=== PATIENT | male | born 2000 | race Caucasian/White ===

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

== ENCOUNTER 2021-08-01 06:26 | Emergency (ER) | payer SELFPAY ==
[2021-08-01] MEDS ORDERED: Acetaminophen 325 MG Tab PO ONE (07:24)
[2021-08-01] MEDS ORDERED: Ibuprofen 800 MG Tab PO ONE (07:25)
--- NOTE | 2021-08-01 07:31 | EDM.PDOC ---
ED HPI GENERAL MEDICAL PROBLEM - General Chief Complaint: General Stated Complaint: PAIN IN HEAD Time Seen by Provider: 08/01/21 07:15 Source of Information: Reports: Patient - History of Present Illness INITIAL COMMENTS - FREE TEXT/NARRATIVE: 21-year-old male presents complaining of headache. The patient states he has had Covid for 8 days and last night started a headache. Describes it is frontal and throbbing. He thinks it might be his sinuses. No high fevers. No thick nasal discharge. No slurred speech or double vision or arm/leg numbness/weakness. Moderate pain Bilateral Head Pain Score (Numeric/FACES): 8 - Related Data Allergies Allergy/AdvReac Type Severity Reaction Status Date / Time No Known Allergies Allergy Verified 08/01/21 06:35 Home Meds: Home Meds Amoxicillin/Potassium Clav [Augmentin 875-125 Tablet] 1 each PO BID #20 tablet 08/01/21 [Rx] Past Medical History - Past Health History Medical/Surgical History: Denies Medical/Surgical History - Infectious Disease History Infectious Disease History: Reports: None Social & Family History - Family History Family Medical History: No Pertinent Family History - Tobacco Use Tobacco Use Status *Q: Never Tobacco User - Caffeine Use Caffeine Use: Reports: Coffee - Recreational Drug Use Recreational Drug Use: No ED ROS GENERAL - Review of Systems Review Of Systems: See Below Constitutional: Denies: Fever HEENT: Reports: Other (Headache) Respiratory: Reports: Cough Cardiovascular: Reports: No Symptoms GI/Abdominal: Reports: No Symptoms Musculoskeletal: Reports: Muscle Pain ED EXAM, GENERAL - Physical Exam Exam: See Below Free Text/Narrative:: CONSTITUTIONAL: well appearing in no acute distress SKIN: Warm, dry, and intact without rash HENT: Normocephalic, atraumatic, PULMONARY: clear to ausculation bilaterally. No rales, rhonchi, wheezing CARDIOVASCULAR: regular rate, No murmur, rubs, or gallops GASTROINTESTINAL: soft, nondistended, nontender NEUROLOGIC: normal speech, II-XII intact. light touch/5/5 power equal and symmetric in upper and lower extremities without deficit MUSCULOSKELETAL: no gross deformities, atraumatic PSYCHIATRIC: normal mood and affect Course - Vital Signs Text/Narrative:: Differential diagnosis: Viral cephalgia, meningitis, intracranial hemorrhage, malignancy, bacterial sinusitis, other She presents complaining of headache. Patient is well-appearing and nontoxic. No meningismus and no focal neurologic deficits. Patient has had Covid this could represent a viral cephalgia. Alternatively this could represent an early bacterial sinusitis superinfection. Patient given Tylenol ibuprofen with improvement of condition. Antibiotics in case there is spiking fevers and/or if symptoms persist longer than 10 days. Supportive treat return precautions PCP follow-up Last Recorded V/S: Last Vital Signs Temp 35.9 C L 08/01/21 06:35 Pulse 78 08/01/21 08:55 Resp 18 08/01/21 08:55 BP 131/75 08/01/21 08:55 Pulse Ox 98 08/01/21 08:55 - Orders/Labs/Meds Meds: Medications Discontinued Medications Generic Name Dose Route Start Last Admin Trade Name Dandre PRN Reason Stop Dose Admin Acetaminophen 975 mg 08/01/21 07:24 08/01/21 08:11 Acetaminophen 325 Mg Tab PO 08/01/21 07:25 975 mg NOW ONE Administration Sodium Chloride 1,000 mls @ 999 mls/hr 08/01/21 08:41 08/01/21 08:53 Normal Saline IV 08/01/21 09:41 999 mls/hr .BOLUS ONE Administration Ibuprofen 800 mg 08/01/21 07:25 08/01/21 08:10 Ibuprofen 800 Mg Tab PO 08/01/21 07:26 800 mg ONETIME ONE Administration Metoclopramide HCl 10 mg 08/01/21 08:41 08/01/21 08:53 Metoclopramide 10 Mg/2 Ml Sdv IVPUSH 08/01/21 08:42 10 mg ONETIME ONE Administration Departure - Departure Time of Disposition: 10:01 Disposition: Home, Self-Care 01 Condition: Good Clinical Impression: Headache - Discharge Information Prescriptions: Amoxicillin/Potassium Clav [Augmentin 875-125 Tablet] 1 each PO BID #20 tablet Referrals: Kamlesh Duran DDS [Primary Care Provider] - Forms: ED Department Discharge Additional Instructions: Return for high fevers, slurred speech, double vision, arm/leg numbness/weakness, change or worsening condition. Tylenol and ibuprofen for bodyaches. Take antibiotics if you spike high fever or symptoms persist for greater than 3 additional days Sepsis Event Note (ED) - Evaluation Sepsis Screening Result: No Definite Risk - Focused Exam Vital Signs: Vital Signs Temp Pulse Resp BP Pulse Ox 10/24/21 08:55 78 18 131/75 98 08/01/21 08:12 69 16 142/81 H 100 08/01/21 06:35 35.9 C L 71 16 140/82 100
[2021-08-01] MEDS ORDERED: Sodium Chloride 0.9% 1,000 ML IV ONE (08:41)
[2021-08-01] MEDS ORDERED: Metoclopramide 10 MG/2 ML SDV IVPUSH ONE (08:41)
== END 2021-08-01 10:26 | disposition home or self-care (01) ==
LOC: MW.ED 06:26
DX: R51.9 Headache, unspecified (principal)
CPT/HCPCS: 96374; 99283; A9270; J2765; J7030

== ENCOUNTER 2021-08-02 00:47 | Emergency (ER) | payer SELFPAY ==
[2021-08-02] MEDS ORDERED: Amoxicillin/Clavulanate K 875-125 MG Tab PO ONE (01:14)
[2021-08-02] MEDS ORDERED: Acetaminophen/oxyCODONE 325-10 MG Tab PO ONE (01:14)
--- NOTE | 2021-08-02 01:19 | EDM.PDOC ---
ED HPI GENERAL MEDICAL PROBLEM - General Chief Complaint: Headache Stated Complaint: FACIAL PAIN- RIGHT SIDE Time Seen by Provider: 08/02/21 00:52 - History of Present Illness INITIAL COMMENTS - FREE TEXT/NARRATIVE: History of present illness: [] This patient was seen in the morning of 08/01/2021 with COVID-19 headache and sinusitis was prescribed Augmentin. He was sent to ENT pharmacy. Because it was Monday the pharmacy was not open. Patient continues to have headache in the right frontal area above his eye. He also has nausea and he has nosebleed no other symptoms. Review of systems: As per history of present illness and below otherwise all systems reviewed and negative. Past medical history: As per history of present illness and as reviewed below otherwise noncontributory. Surgical history: As per history of present illness and as reviewed below otherwise noncontributory. Social history: No reported history of drug or alcohol abuse. Family history: As per history of present illness and as reviewed below otherwise noncontributory. Physical exam: Constitutional - well developed, well-nourished and in no acute distress HEENT -patient has some fullness and tenderness in the right frontal area-neck supple-normocephalic, no evidence of trauma - external nose and mouth normal - no mass in neck and no JVD - mucosae moist EYES - full EOM, PERRL, no icterus - no evidence of inflammation, injection, or drainage Respiratory - no respiratory distress, equal bilateral expansion, lungs clear to auscultation and no abnormal lung sounds Cardiovascular - Regular Rhythm with S1 and S2 appreciated and no murmur, gallop or rub. GI - abdomen soft without distension or organomegaly - normal bowel sounds - no guard or rebound Musculoskeletal no gross deformity of long bones or joints - no tenderness, swelling or edema Neurologic - Alert and oriented times four - CN II-XII grossly intact - motor sensory and coordination symmetrically normal Psychiatric - appropriate mood and affect with normal thought content Hematologic - No petechiae or purpura - mucosa appropriate color and sclera not pale - normal nail bed color and refill Integument - no rash or evidence of trauma - normal turgor Diagnostics: [] Therapeutics: [] Impression: [] Plan: [] Definitive disposition and diagnosis as appropriate pending reevaluation and review of above. Headache Pain Score (Numeric/FACES): 10 - Related Data Allergies Allergy/AdvReac Type Severity Reaction Status Date / Time No Known Allergies Allergy Verified 08/02/21 00:58 Home Meds: Home Meds Amoxicillin/Potassium Clav [Augmentin 875-125 Tablet] 1 each PO BID #20 tablet 08/01/21 [Rx] Amoxicillin/Clavulanate K [Augmentin 875-125 MG] 1 tab PO Q12HR 10 Days #20 tablet 08/02/21 [Rx] Past Medical History - Past Health History Medical/Surgical History: Denies Medical/Surgical History - Infectious Disease History Infectious Disease History: Reports: None Social & Family History - Family History Family Medical History: No Pertinent Family History - Tobacco Use Second Hand Smoke Exposure: No - Caffeine Use Caffeine Use: Reports: None - Recreational Drug Use Recreational Drug Use: No ED ROS GENERAL - Review of Systems Review Of Systems: Comprehensive ROS is negative, except as noted in HPI. ED EXAM, GENERAL - Physical Exam Exam: See Below Free Text/Narrative:: My physical exam as in the HPI Course - Vital Signs Last Recorded V/S: Last Vital Signs Temp 37.2 C 08/02/21 00:51 Pulse 71 08/02/21 00:51 Resp 20 08/02/21 00:51 BP 135/74 08/02/21 00:51 Pulse Ox 100 08/02/21 00:51 - Orders/Labs/Meds Meds: Medications Discontinued Medications Generic Name Dose Route Start Last Admin Trade Name Freq PRN Reason Stop Dose Admin Amoxicillin/Clavulanate Potassium 1 tab 08/02/21 01:14 Amoxicillin/Clavulanate K 875-125 Mg Tab PO 08/02/21 01:15 ONETIME ONE Oxycodone/Acetaminophen 1 tab 08/02/21 01:14 Acetaminophen/Oxycodone 325-10 Mg Tab PO 08/02/21 01:15 ONETIME ONE Departure - Departure Time of Disposition: 01:16 Disposition: Home, Self-Care 01 Condition: Good Clinical Impression: Sinusitis, Headache, COVID-19 - Discharge Information Prescriptions: Amoxicillin/Clavulanate K [Augmentin 875-125 MG] 1 tab PO Q12HR 10 Days #20 tablet Instructions: Sinusitis, Adult, [id number] Referrals: Nick Duran MD [Primary Care Provider] - [facility] Inst[facility] - [facility] Care [address] [place], [place] [address], [place] [address] [facility] [address] [place] [address] The following information is given to patients seen in the emergency department who are being discharged to home. This information is to outline your options for follow-up care. We provide all patients seen in our emergency department with a follow-up referral. The need for follow-up, as well as the timing and circumstances, are variable depending upon the specifics of your emergency department visit. If you don't have a primary care physician on staff, we will provide you with a referral. We always advise you to contact your personal physician following an emergency department visit to inform them of the circumstance of the visit and for follow-up with them and/or the need for any referrals to a consulting specialist. The emergency department will also refer you to a specialist when appropriate. This referral assures that you have the opportunity for follow-up care with a specialist. All of these measure are taken in an effort to provide you with optimal care, which includes your follow-up. Under all circumstances we always encourage you to contact your private physician who remains a resource for coordinating your care. When calling for follow-up care, please make the office aware that this follow-up is from your recent emergency room visit. If for any reason you are refused follow-up, please contact the [facility] Emergency Department at and asked to speak to the emergency department charge nurse. Sepsis Event Note (ED) - Evaluation Sepsis Screening Result: No Definite Risk - Focused Exam Vital Signs: Vital Signs Temp Pulse Resp BP Pulse Ox 08/02/21 00:51 37.2 C 71 20 135/74 100
== END 2021-08-02 01:36 | disposition home or self-care (01) ==
LOC: MW.ED 00:47
DX: U07.1 COVID-19 (principal); J32.9 Chronic sinusitis, unspecified
CPT/HCPCS: 99283; A9270